=== PATIENT | male | born 1995 | race African-American/Black ===

== ENCOUNTER 2017-05-12 12:15 | Emergency (ER) | payer SELFPAY ==
[~2017-05-12] VITALS: Ht 185.4 cm; Wt 63.5 kg
[2017-05-12 12:52] VITALS: BP 110/55
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
[2017-05-12] MEDS ORDERED: IBUPROFEN 800 MG TABLET. PO ONE (13:30)
[2017-05-12] MEDS ORDERED: CYCLOBENZAPRINE 10 MG TABLET. PO ONE (13:30)
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
[2017-05-12] MEDS ORDERED: CYCL10TA2 PO (14:47)
== END 2017-05-12 15:19 | disposition home or self-care (01) ==
LOC: ER 12:15
DX: M25.511 Pain in right shoulder (principal); M25.531 Pain in right wrist; F12.10 Cannabis abuse, uncomplicated; M25.561 Pain in right knee; V43.52XA Car driver injured in collision with other type car in traffic accident, initial encounter; Y93.89 Activity, other specified; Y92.89 Other specified places as the place of occurrence of the external cause; Y99.8 Other external cause status
CPT/HCPCS: 73030; 73110; 73564; 99284